=== PATIENT | female | born 1940 | race Caucasian/White ===

== ENCOUNTER 2016-11-23 09:00 | Emergency (ER) | payer MEDICAID, MEDICARE, OTHER ==
[2016-11-23 09:28] VITALS: RESP 16; TEMP 98.4; O2SAT 99
[2016-11-23] MEDS ORDERED: Bacitracin 500 Units/gm Oint Foilpak UD ONE ×2 (09:56→12:36)
--- NOTE | 2016-11-23 10:43 | RAD ---
PROCEDURE: Left Ankle Radiographs. HISTORY: L lateral wound, h/o orif 3 yrs ago, ? osteo COMPARISON: None FINDINGS: BONES: Status post reduction and internal fixation of fractures in the medial and lateral malleoli. There is lucency surrounding the 4th screw in the lateral malleolus. There is no evidence of screw fracture. There is mild periarticular bone demineralization. No acute displaced fracture. There is a large plantar calcaneal spur and prominent dorsal calcaneal enthesophyte. JOINTS: Normal. No osteoarthritis. Ankle mortise maintained. Talar dome intact SOFT TISSUES: Normal. OTHER FINDINGS: None. IMPRESSION: Lucencies surrounding the 4th screw in the lateral malleolus could represent loosening or osteomyelitis.
--- NOTE | 2016-11-23 10:46 | C.PDOC ---
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 ORIF for left ankle fracture in [place] 3 years ago. Patient reports she has been cleaning the wound with a variety of household items including crushed tablets and alcohol peroxide without significant improvements. Patient denies fever or chills. No further medical complaints. PMD: None provided. Time Seen by Provider: 11/23/16 09:26 Chief Complaint (Nursing): Lower Extremity Problem/Injury History Per: Patient History/Exam Limitations: no limitations Onset/Duration Of Symptoms: Days (3 months) Current Symptoms Are (Timing): Still Present Severity: Mild Pain Scale Rating Of: 3 Past Medical History Reviewed: Historical Data, Nursing Documentation, Vital Signs Vital Signs: Last Vital Signs Temp 98.4 F 11/23/16 09:19 Pulse 83 11/23/16 09:19 Resp 16 11/23/16 09:19 BP 156/98 H 11/23/16 09:19 Pulse Ox 99 11/23/16 10:50 - Medical History PMH: HTN Family History: States: Unknown Family Hx - Social History Hx Tobacco Use: No (Former smoker) Hx Alcohol Use: No Hx Substance Use: No Review Of Systems Except As Marked, All Systems Reviewed And Found Negative. Constitutional: Negative for: Fever, Chills Musculoskeletal: Positive for: Foot Pain (wound at left lateral ankle) Physical Exam - Physical Exam Appears: Well, No Acute Distress Skin: Normal Color, Warm, Dry Head: Atraumatic Eye(s): bilateral: Normal Inspection Neck: Normal, Normal ROM, Supple Cardiovascular: Rhythm Regular, No Murmur Respiratory: Normal Breath Sounds Extremity: Other (1cm x 3cm chronic wound to left lateral ankle. ORIF prominence is felt but not visualized) Neurological/Psych: Normal Speech, Normal Motor, Normal Sensation ED Course And Treatment O2 Sat by Pulse Oximetry: 99 (RA) Pulse Ox Interpretation: Normal - Other Rad L ankle X-Ray: Interpreted by Me, Read By Radiologist (no fx/disloc, + lucency around ORIF screws, ? osteo vs loostening screws) Progress Note: wound cleaned and properly bandaged- and educated on same. Seen by Podiatry Carlos, ok to f/u in [facility] Mondays 12-3P Reevaluation Time: 12:49 Reassessment Condition: Unchanged Medical Decision Making Medical Decision Making: chronic L lateral wound ? underlying osteo vs skin breakdown Eval by Pods, no acute inteventions, ? plan to remove hardware Disposition Doctor Will See Patient In The: Office Counseled Patient/Family Regarding: Studies Performed, Diagnosis - Disposition Disposition: HOME/ ROUTINE Disposition Time: 12:51 Condition: GOOD Forms: [employer] (Kyrgyz) - Clinical Impression Clinical Impression: Ankle wound - Scribe Statement Harlan Warner Provider Attestation: All medical record entries made by the Scribe were at my direction and personally dictated by me. I have reviewed the chart and agree that the record accurately reflects my personal performance of the history, physical exam, medical decision making, and the department course for this patient. I have also personally directed, reviewed, and agree with the discharge instructions and disposition.
[2016-11-23] MEDS ORDERED: Silver Sulfadiazine 1% Cream (20 gm) ONE (12:38)
[2016-11-23 13:03] VITALS: BP 145/78; PULSE 70
== END 2016-11-23 13:01 | disposition home or self-care (01) ==
LOC: C.ER 09:00
DX: S91.002A Unspecified open wound, left ankle, initial encounter (principal); X58.XXXA Exposure to other specified factors, initial encounter

== ENCOUNTER 2017-09-26 07:03 | Day surgery (SDC) | payer OTHER ==
[2017-09-26] MEDS ORDERED: Lactated Ringer's 1,000 ML IV ONE (09:42)
--- NOTE | 2017-09-26 09:42 | CP.SDSHP ---
Same Day Surgery H & P - History Proposed Procedure: EGD Pre-Op Diagnosis: SEE NOTES - Previous Medical/Surgical History Cardiac: Hypertension Endocrine/Metabolic: Other Neuro: Other Misc: Other Pain: 4.Moderate Pain - Allergies Allergies: Allergies shrimp Allergy (Verified 11/23/16 09:18) RASH - Physical Exam General Appearance: N Vital Signs: Vital Signs 09/26/17 07:40 Temperature 97.4 F L Pulse Rate 79 Respiratory 20 Rate Blood Pressure 153/89 H O2 Sat by Pulse 98 Oximetry Mental Status: Alert & Oriented x3 Neuro: Other Heart: Other Lungs: WNL GI: Other - {Optional Preform as Required} Breast: WNL Abdomen: Other Rectal: Other Integument: WNL : WNL Ortho: Other ENT: WNL - Impression Pt. Evaluated Today:Candidate for Anesthesia & Procedure: Yes - Date & Time Time: 09:42 Short Stay Discharge - Short Stay Discharge Admitting Diagnosis/Reason for Visit: DYSPEPSIA, NAUSEA Disposition: HOME/ ROUTINE
[2017-09-26] MEDS ORDERED: Propofol 10 mg/ml Inj (20 ML) ONE (09:49)
[2017-09-26] MEDS ORDERED: Pantoprazole 40 mg EC Tab PO STA (09:58)
[2017-09-26] MEDS ORDERED: Belladonna-Phenobarbital PO ONE (10:10)
[2017-09-26 11:38] VITALS: TEMP 98
[2017-09-26 11:40] VITALS: RESP 15
[2017-09-26 12:30] VITALS: BP 168/81; PULSE 62; O2SAT 99
== END 2017-09-26 11:10 | disposition home or self-care (01) ==
LOC: C.ENDO 07:03
PROVIDERS: ATTEND Specialist
DX: K30 Functional dyspepsia (principal); R11.0 Nausea; R10.84 Generalized abdominal pain; K44.9 Diaphragmatic hernia without obstruction or gangrene; I10 Essential (primary) hypertension; K29.50 Unspecified chronic gastritis without bleeding; K26.9 Duodenal ulcer, unspecified as acute or chronic, without hemorrhage or perforation; K29.80 Duodenitis without bleeding; B96.81 Helicobacter pylori [H. pylori] as the cause of diseases classified elsewhere
CPT/HCPCS: 43239; 88305; 88342; J2001; J2704; J7120

== ENCOUNTER 2017-10-01 07:01 | Day surgery (SDC) | payer MEDICARE, OTHER ==
[2017-09-30 13:31] VITALS: BMI 28.3
[2017-10-01] MEDS ORDERED: Propofol 10 mg/ml Inj (20 ML) ONE ×2 (08:59→09:30)
--- NOTE | 2017-10-01 09:10 | CP.SDSHP ---
Same Day Surgery H & P - History Proposed Procedure: COLONSCOPY Pre-Op Diagnosis: SEE NOTES - Previous Medical/Surgical History Cardiac: Hypertension Endocrine/Metabolic: Other Misc: Other Pain: 4.Moderate Pain - Allergies Allergies: Allergies shrimp Allergy (Verified 11/23/16 09:18) RASH TEGADERM Allergy (Uncoded 10/01/17 08:17) RASH - Physical Exam General Appearance: N Vital Signs: Vital Signs 10/01/17 08:02 Temperature 97.5 F L Pulse Rate 80 Respiratory 20 Rate Blood Pressure 135/91 H O2 Sat by Pulse 99 Oximetry Neuro: WNL Heart: Other Lungs: WNL GI: Other - {Optional Preform as Required} Breast: WNL Abdomen: Other Rectal: Other Integument: WNL : WNL Ortho: Other ENT: WNL - Impression Pt. Evaluated Today:Candidate for Anesthesia & Procedure: Yes - Date & Time Time: 09:10 Short Stay Discharge - Short Stay Discharge Admitting Diagnosis/Reason for Visit: DYSPEPSIA, NAUSEA Disposition: HOME/ ROUTINE
[2017-10-01] MEDS ORDERED: Belladonna-Phenobarbital PO ONE (09:50)
[2017-10-01 14:03] VITALS: TEMP 97; O2SAT 100
[2017-10-01 14:10] VITALS: BP 145/83; PULSE 80; RESP 20
== END 2017-10-01 11:00 | disposition home or self-care (01) ==
LOC: C.ENDO 07:01
PROVIDERS: ATTEND Specialist
DX: D12.4 Benign neoplasm of descending colon (principal); K64.8 Other hemorrhoids; K52.9 Noninfective gastroenteritis and colitis, unspecified; K64.4 Residual hemorrhoidal skin tags
CPT/HCPCS: 45380; 88305; J2704